=== PATIENT | female | born 1995 | race Caucasian/White ===

== ENCOUNTER 2018-09-22 10:58 | Inpatient (IN) | payer BC ==
[~2018-09-22] VITALS: Ht 175.3 cm; Wt 78.5 kg
[2018-09-22 11:09] VITALS: BP_SYST 136
[2018-09-22] MEDS ORDERED: TERBUTALINE SULFATE 1 MG/ML VIAL SUBCUT ONE (11:15)
[2018-09-22] MEDS ORDERED: LR 1,000 ML IV SCH ×2 (11:15→14:23)
[2018-09-22] MEDS ORDERED: NALBUPHINE HCL 10 MG/ML AMP IM PRN (11:15)
[2018-09-22] MEDS ORDERED: NALBUPHINE HCL 10 MG/ML AMP IVP PRN (11:15)
[2018-09-22] MEDS ORDERED: OXYTOCIN/0.9 % SODIUM CHLORIDE 1,000 ML IV SCH (11:15)
[2018-09-22 12:29] LABS: HEMATOCRIT 34.9 % (36-48); HEMOGLOBIN 11.7 g/dL (12.0-16.0); RED BLOOD CELL COUNT(AUTO) 3.92 MIL/uL (4.2-6.2); WHITE BLOOD COUNT (AUTO) 15.3 K/uL (4.8-10.8)
[2018-09-22 12:30] LABS: BASOPHILS % (AUTO) 0.3 % (0.0-2.0); EOSINOPHILS # (AUTO) 0.2 K/uL (0.0-0.4); LYMPHOCYTES # (AUTO) 1.7 K/uL (1.0-5.5); MEAN CORPUSCULAR HEMOGLOBIN 30 pg (27-31); MEAN CORPUSCULAR HGB CONC 34 % (32-36); MEAN CORPUSCULAR VOLUME 89 fL (79.0-98.0); MONOCYTES # (AUTO) 0.6 K/uL (0.0-1.0); MONOCYTES % (AUTO) 3.9 % (1.7-9.3); NEUTROPHILS # (AUTO) 12.8 K/uL (1.8-7.7); NEUTROPHILS % (AUTO) 93.8 % (40.0-70.0); PLATELET COUNT (AUTO) 204 K/uL (130-430)
[2018-09-22 12:31] LABS: BASOPHILS # (AUTO) 0.1 K/uL (0.0-0.2)
[2018-09-22] MEDS ORDERED: fentaNYL CITRATE/PF 100 MCG/2 ML AMP ONE (13:13)
[2018-09-22] MEDS ORDERED: ROPIVACAINE HCL/PF 0.2% 100 ML ONE (13:14)
[2018-09-22] MEDS ORDERED: LR 1,000 ML IV.SOLN IV ONE (13:40)
[2018-09-22] MEDS ORDERED: MORPHINE SULFATE 10MG/10ML PF AMP EP ONE (13:40)
[2018-09-22] MEDS ORDERED: LIDOCAINE MPF 2% 5mL VIAL INJ ONE (13:40)
[2018-09-22] MEDS ORDERED: ONDANSETRON HCL 4 MG/2 ML VIAL IVP ONE (13:40)
[2018-09-22] MEDS ORDERED: NS IRRIG SOLN 1000 ML IR ONE (13:40)
[2018-09-22] MEDS ORDERED: OXYTOCIN 10 UNIT/ML VIAL IV ONE (13:40)
[2018-09-22] MEDS ORDERED: CEFAZOLIN 2 GM IVPB PREMIX 50 ML IV ONE ×2 (14:06→16:00)
[2018-09-22] MEDS ORDERED: KETOROLAC TROMETHAMINE 60 MG/2 ML VIAL IM PRN (14:30)
[2018-09-22] MEDS ORDERED: MORPHINE SULFATE 10MG/10ML PF AMP EP SCH (14:30)
[2018-09-22] MEDS ORDERED: METOCLOPRAMIDE HCL 10 MG/2 ML VIAL IVP PRN (14:30)
[2018-09-22] MEDS ORDERED: NALOXONE HCL 0.4 MG/ML AMP (NARCAN) IVP PRN (14:30)
[2018-09-22] MEDS ORDERED: MEPERIDINE HCL/PF 50 MG/ML AMP IVP PRN ×2 (14:30)
[2018-09-22] MEDS ORDERED: ONDANSETRON HCL 4 MG/2 ML VIAL IVP PRN (14:30)
[2018-09-22] MEDS ORDERED: DIPHENHYDRAMINE INJ 50 MG/ML VIAL IM PRN (14:30)
[2018-09-22 14:37] VITALS: BP_SYST 115
[2018-09-22] MEDS ORDERED: OXYTOCIN/0.9 % SODIUM CHLORIDE 1,000 ML IV ONE (15:49)
[2018-09-22] MEDS ORDERED: SIMETHICONE 80 MG TAB.CHEW PO PRN (16:00)
[2018-09-22] MEDS ORDERED: LANOLIN 7 GM OINT. TP PRN (16:00)
[2018-09-22] MEDS ORDERED: DOCUSATE SODIUM 100 MG CAPSULE PO PRN (16:00)
[2018-09-22] MEDS ORDERED: ANUSOL 1 EA SUPP.RECT (PREPARATION H) RC PRN (16:00)
[2018-09-22] MEDS ORDERED: TEMAZEPAM 15 MG CAPSULE PO PRN (21:00)
[2018-09-23] MEDS: LR 1,000 ML IV SCH ×2 (00:15→09:30)
[2018-09-23] MEDS ORDERED: OXYCODONE/ACETAMINOPHEN 5-325 TABLET PO PRN (06:00)
[2018-09-23] MEDS ORDERED: HYDROcodone/ACETAMIN 5-325 MG TAB (NORCO/ VICODIN) PO PRN (06:00)
[2018-09-23 07:20] LABS: HEMOGLOBIN 10.7 g/dL (12.0-16.0); RED BLOOD CELL COUNT(AUTO) 3.52 MIL/uL (4.2-6.2); WHITE BLOOD COUNT (AUTO) 17.2 K/uL (4.8-10.8)
[2018-09-23 07:21] LABS: BASOPHILS % (AUTO) 0.1 % (0.0-2.0); EOSINOPHILS % (AUTO) 1.1 % (0.0-4.0); HEMATOCRIT 31.5 % (36-48); LYMPHOCYTES # (AUTO) 1.4 K/uL (1.0-5.5); LYMPHOCYTES % (AUTO) 7.9 % (20.5-51.5); MEAN CORPUSCULAR HEMOGLOBIN 30 pg (27-31); MEAN CORPUSCULAR HGB CONC 34 % (32-36); MEAN CORPUSCULAR VOLUME 89 fL (79.0-98.0); MONOCYTES # (AUTO) 0.8 K/uL (0.0-1.0); MONOCYTES % (AUTO) 4.5 % (1.7-9.3); NEUTROPHILS # (AUTO) 14.9 K/uL (1.8-7.7); NEUTROPHILS % (AUTO) 86.4 % (40.0-70.0); PLATELET COUNT (AUTO) 172 K/uL (130-430); RED CELL DISTRIBUTION WIDTH 13.5 % (9.0-15.0)
[2018-09-23 07:22] LABS: EOSINOPHILS # (AUTO) 0.2 K/uL (0.0-0.4)
[2018-09-23] MEDS: IBUPROFEN 600 MG TABLET PO SCH ×2 (12:45→17:44)
[2018-09-23] MEDS: OXYCODONE/ACETAMINOPHEN 5-325 TABLET PO PRN (19:30)
[2018-09-24] MEDS: IBUPROFEN 600 MG TABLET PO SCH ×3 (00:05→12:00)
[2018-09-24] MEDS: OXYCODONE/ACETAMINOPHEN 5-325 TABLET PO PRN ×3 (01:46→12:30)
== END 2018-09-24 13:05 | disposition home or self-care (01) | DRG 788 ==
LOC: OBSVTOIN 10:58 → SPU 10:58
PROVIDERS: ADMIT Obstetrics & Gynecology; ATTEND Obstetrics & Gynecology
PROC: 10D00Z1 Extraction of Products of Conception, Low, Open Approach (ICD-10-PCS; principal; 2018-09-22 13:30)
PROC: 3E0334Z Introduction of Serum, Toxoid and Vaccine into Peripheral Vein, Percutaneous Approach (ICD-10-PCS; 2018-09-23)
DX: O36.8190 Decreased fetal movements, unspecified trimester, not applicable or unspecified (principal); O76 Abnormality in fetal heart rate and rhythm complicating labor and delivery; Z37.0 Single live birth; Z3A.39 39 weeks gestation of pregnancy
CPT/HCPCS: 36415; 85025; 86592; 86886; 86900; 86901; 94760; J0690; J1885; J2001; J2274; J2405; J2590; J2790; J2795; J3010; J7120